=== PATIENT | female | born 1995 | race Caucasian/White ===

== ENCOUNTER 2018-01-28 11:18 | Emergency (ER) | payer BC ==
--- NOTE | 2018-01-28 11:47 | UC ---
Upper Extremity HPI - HPI Summary HPI Summary: This pt is a 22 y/o female presenting to [facility] c/o right forearm numbness for the past 4 days. Pt reports right forearm numbness radiating into the wrist. She additionally states right arm tingling intermittently. Denies any hx of trauma or injury. She does note she types a lot. Denies fever, swelling, redness, neck pain. Pt is on control pills. Denies any PMHx. - History of Current Complaint Chief Complaint: UCUpperExtremity Stated Complaint: LOWER ARM NUMBNESS Time Seen by Provider: 01/28/18 11:35 Hx Obtained From: Patient Hx Last Menstrual Period: 01/05/18 Onset/Duration: Lasting Days, Still Present Severity Currently: None Pain Intensity: 0 Pain Scale Used: 0-10 Numeric Location Of Pain: Is Discrete @ - right forearm, Radiates To - right wrist Aggravating Factor(s): Nothing Alleviating Factor(s): Nothing Associated Signs And Symptoms: Positive: Numbness/Tingling - on right forearm. Negative: Swelling, Redness, Bruising, Fever, Other - neck pain - Allergies/Home Medications Allergies/Adverse Reactions: Allergies Allergy/AdvReac Type Severity Reaction Status Date / Time environmental Allergy Congestion Uncoded 01/28/18 11:35 Home Medications: Home Medications ( Control) 1 tab PO DAILY 01/28/18 [History Confirmed 01/28/18] PMH/Surg Hx/FS Hx/Imm Hx Other Endocrine History: DENIES: diabetes Other Cardiovascular History: DENIES: HTN - Surgical History Surgical History: Yes Surgery Procedure, Year, and Place: cosmetic ear surgery at age 7 - Family History Known Family History: Negative: Cardiac Disease, Hypertension, Diabetes - Social History Alcohol Use: None Substance Use Type: None Smoking Status (MU): Never Smoked Tobacco Review of Systems Constitutional: Negative Skin: Negative Eyes: Negative ENT: Negative Respiratory: Negative Cardiovascular: Negative Gastrointestinal: Negative Genitourinary: Negative Motor: Negative Neurovascular: Negative Musculoskeletal: Negative Neurological: Paresthesia - right forearm, Numbness - in right forearm Psychological: Negative Is Patient Immunocompromised?: No All Other Systems Reviewed And Are Negative: Yes Physical Exam - Summary Physical Exam Summary: VITAL SIGNS: Reviewed. GENERAL: Patient is a well-developed and nourished female who is lying comfortable in the stretcher. Patient is not in any acute respiratory distress. HEAD AND FACE: Normocephalic EYES: PERRLA, EOMI x 2. EARS: Hearing grossly intact. MOUTH: Oropharynx within normal limits. NECK: Supple, trachea is midline, no adenopathy, no JVD, no carotid bruit. CHEST: Symmetric, no tenderness at palpation LUNGS: Clear to auscultation bilaterally. No wheezing or crackles. CVS: Regular rate and rhythm, S1 and S2 present, no murmurs or gallops appreciated. ABDOMEN: Soft, non-tender. Bowel sounds are normal. No abdominal abnormal pulsations. EXTREMITIES: Full ROM in all major joints, no edema, no cyanosis or clubbing. NEURO: Alert and oriented x 3. No acute neurological deficits. Speech is normal and follows commands. RUE: numbness in the ventral aspect of right forearm into the wrist, with some intermittent tingling. SKIN: Dry and warm Triage Information Reviewed: Yes Vital Signs: Initial Vital Signs Temp 98.7 F 01/28/18 11:30 Pulse 84 01/28/18 11:30 Resp 18 01/28/18 11:30 BP 130/81 01/28/18 11:30 Pulse Ox 99 01/28/18 11:30 Vital Signs Reviewed: Yes Upper Extremity Course/Dx - Course Course Of Treatment: Ppt is a 22 y/o female presenting to [facility] c/o right forearm numbness for the past 4 days. Pt reports right forearm numbness radiating into the wrist. She additionally states right arm tingling intermittently. Denies any hx of trauma or injury. She does note she types a lot. Denies fever, swelling, redness, neck pain. Pt is on control pills. Denies any PMHx. Pt has numbness in the ventral aspect of right forearm into the wrist with some intermittent tingling. She will be discharged home with a prescription for prednisone. Pt was instructed to return to the urgent care or go to ER immediately if any of the symptoms return or worsens. Plan of care was discussed with the patient and pt understands and agrees. All questions were answered to patient satisfaction. There were no further complaints or concerns. Pt will be discharged to home with follow up from PCP. Pt is hemodynamically stable, alert and oriented x3. The patient was found to have increased blood pressure in UC. The patient will follow up with PCP for better control of BP. - Differential Dx/Diagnosis Provider Diagnoses: Paresthesia Discharge - Sign-Out/Discharge Documenting (check all that apply): Patient Departure - Discharge - Discharge Plan Condition: Stable Disposition: HOME Prescriptions: predniSONE [Prednisone 20 MG TAB] 20 mg PO DAILY #5 tablet Patient Education Materials: Paresthesia (ED) Referrals: No Primary Care Phys,NOPCP [Primary Care Provider] - [facility] [Outside] Additional Instructions: FOLLOW UP WITH YOUR PRIMARY CARE PROVIDER WITHIN ONE WEEK FOR HIGH BLOOD PRESSURE NOTED TODAY. RETURN TO URGENT CARE OR THE ED FOR ANY WORSENING OR NEW SYMPTOMS. - Billing Disposition and Condition Condition: STABLE Disposition: Home
== END 2018-01-28 11:52 | disposition home or self-care (01) ==
LOC: UCEAST 11:18
DX: R20.2 Paresthesia of skin (principal)
CPT/HCPCS: 99203; G0463